=== PATIENT | female | born 1950 | race African-American/Black ===

== ENCOUNTER → 2016-12-16 | Outpatient (CLI) | payer MEDICARE, OTHER ==
--- NOTE | 2016-12-16 16:57 | KCIC ---
EXAM: Lumbar spine MRI without contrast. HISTORY: Disc disease. Lower back and lower extremity pain. TECHNIQUE: Multiplanar, multisequence magnetic resonance imaging of the lumbar spine was performed without contrast. COMPARISON: None. FINDINGS: There is a transitional lumbosacral segment, considered S1 with a rudimentary S1-S2 disc for this dictation. There is grade 1 anterolisthesis of L4 on L5, measuring 4 mm. There is lumbar hyperlordosis and mild scoliosis. There is degenerative endplate remodeling with disc space narrowing, osteophytosis and Schmorl's node formation primarily at L5-S1. There is disc desiccation at this level and at L4-L5. The conus is low-lying and terminates at L2. At L1-L2, there is no stenosis. At L2-L3, there is a minimal disc bulge. There is mild bilateral facet arthropathy. There is minimal bilateral foraminal stenosis. At L3-L4, there is a minimal disc bulge. There is mild facet arthropathy. There is no stenosis. At L4-L5, there is a mild disc bulge. There is severe facet arthropathy. There is a suspected 5 mm left facet joint synovial cyst projecting into the central central canal. There is grade 1 anterolisthesis. There is minimal left foraminal stenosis. There is mild central canal stenosis. At L5-S1, there is a left paracentral to foraminal disc protrusion with slight superior and inferior extrusion an suspected surrounding scar/granulation tissue due to prior microdiscectomy surgery superimposed on a diffuse disc bulge and left lateral predominant endplate osteophytosis. There is mild to moderate left facet arthropathy. There are partial laminectomy changes. There is mild right and moderate to severe left foraminal stenosis. IMPRESSION: 1. Multilevel degenerative change within the lumbar spine, described in detail above. This results in minimal left foraminal and mild central canal stenosis at L4-L5 and mild right and moderate to severe left foraminal stenosis L5-S1. 2. Grade 1 anterolisthesis of L4 on L5 and lumbar hyperlordosis and mild scoliosis. 3. Transitional lumbosacral segment, considered S1 for this dictation. 4. Partial laminectomy changes at L5-S1. Electronically signed by: Misty Lin MD (12/16/2016 4:54 PM) [id number]
== END | disposition home or self-care (01) ==
LOC: KCIC MRI 15:58
PROVIDERS: ATTEND Nurse Practitioner Adult Health
DX: M51.36 Other intervertebral disc degeneration, lumbar region (principal); M48.061 Spinal stenosis, lumbar region without neurogenic claudication
CPT/HCPCS: 72148